=== PATIENT | female | born 1985 | race Caucasian/White ===

== ENCOUNTER 2018-09-24 17:58 | Emergency (ER) | payer OTHER ==
[~2018-09-24] VITALS: Ht 154.9 cm; Wt 81.2 kg
[2018-09-24 18:08] VITALS: BP 127/93; Ht 154.9 cm; Wt 81.2 kg
== END 2018-09-24 22:00 | disposition left against medical advice (07) ==
LOC: ED 17:58
DX: Z53.21 Procedure and treatment not carried out due to patient leaving prior to being seen by health care provider (principal)